=== PATIENT | female | born 1955 | race Caucasian/White ===

== ENCOUNTER → 2024-08-29 15:49 | Outpatient (REF) | payer OTHER, SELFPAY ==
[2024-08-29 18:13] LABS: Hepatitis B Surface Antibody Negative
[2024-08-30 19:16] LABS: Rubella Positive
[2024-08-31 13:26] LABS: Mumps Virus IgG Positive; Rubeola (Measles) IgG Positive; Varicella Zoster IgG (VZV) Positive
== END ==
LOC: OHS 15:49
PROVIDERS: ATTENDING PHYSICIAN Nurse Practitioner Family
DX: Z23 Encounter for immunization (principal); Z13.9 Encounter for screening, unspecified
CPT/HCPCS: 36415; 71046; 86706; 86735; 86762; 86765; 86787